=== PATIENT | male | born 1940 | race Caucasian/White ===

== ENCOUNTER → 2018-11-10 | Outpatient (CLI) | payer MEDICARE, OTHER ==
[~2018-11-10] MED LIST: ASPI325; ASPI325 PO; ASPI81CH PO; ASPI81EC PO; ATOR40TA; BACL10 PO; CEPH500 PO; CLOP75; EZET10 PO; HYDACE5 PO; OXYACE5T PO; OXYC5 PO; VITAMIN D PO
== END ==
LOC: LAB SHORT 09:10 → LAB 09:10
DX: N20.0 Calculus of kidney (principal)
CPT/HCPCS: 81050

== ENCOUNTER 2019-01-17 10:12 | Day surgery (SDC) | payer MEDICARE, OTHER ==
[~2019-01-17] VITALS: Ht 175.3 cm; Wt 105.7 kg
--- NOTE | 2019-01-17 11:07 | NUR ---
Ambulatory in Day Surgery History, Chart, Medications and Allergies reviewed before start of procedure.Patient confirms NPO status and agrees with scheduled surgery. Patient states colon prep results clear.Lungs clear T/O to Auscultation.
[2019-01-17] MEDS ORDERED: ISOMON20 PO (11:12)
--- NOTE | 2019-01-17 11:29 | NUR ---
01/17/19 1129 Celestino Norman PATIENT DETERMINED TO BE ASA APPROPRIATE FOR PROPOFOL SEDATION PRIOR TO START OF PROCEDURE BY . 3-LEAD EKG REVIEWED WITH PHYSICIAN PRIOR TO START OF PROCEDURE.PATIENT CONFIRMS NPO STATUS AND AGREES WITH SCHEDULED PROCEDURE.History, Chart, Medications and Allergies reviewed before start of procedure.MONITOR INTACT WITH CONTINUOUS PULSE OXIMETRY AND INTERMITTENT BP.O2 VIA N/C INTACT THROUGHOUT SEDATION/PROCEDURE.HURRICAINE SPRAY TO OROPHARYX.Bite Block Placed
--- NOTE | 2019-01-17 12:51 | NUR ---
Patient up to Ambulate independently. Gait steady. Discharge instructions reviewed with patient. Patient verbalizes understanding. Copy given to patient to take home. Patient States Post-Procedure ride home has been arranged. Discharged via wheelchair to private car for ride home. RX Protonix 40mg called into [facility].
== END 2019-01-17 12:42 | disposition home or self-care (01) ==
LOC: ORSCMMR 10:12 → ORD 11:00 → ORSCMMR 11:00
PROVIDERS: Internal Medicine Gastroenterology
PROC: 0DJD8ZZ Inspection of Lower Intestinal Tract, Via Natural or Artificial Opening Endoscopic (ICD-10-PCS; principal; 2019-01-17 10:15)
PROC: 0DB68ZX Excision of Stomach, Via Natural or Artificial Opening Endoscopic, Diagnostic (ICD-10-PCS; principal; 2019-01-17 10:15)
DX: D46.4 Refractory anemia, unspecified (principal); K29.00 Acute gastritis without bleeding; K29.80 Duodenitis without bleeding; K57.30 Diverticulosis of large intestine without perforation or abscess without bleeding; R15.0 Incomplete defecation; Z86.010 Personal history of colon polyps; I25.10 Atherosclerotic heart disease of native coronary artery without angina pectoris; G47.33 Obstructive sleep apnea (adult) (pediatric); Z79.82 Long term (current) use of aspirin; Z79.899 Other long term (current) drug therapy
CPT/HCPCS: 88305; 88342; J2250; J3010; J7120

== ENCOUNTER 2019-03-18 10:22 | Day surgery (SDC) | payer MEDICARE, OTHER ==
[~2019-03-18] VITALS: Ht 175.3 cm; Wt 111.0 kg
[~2019-03-18 10:22] MED LIST changes: +ALIROCUMAB; +FURO40 PO; +ISOMON20 PO; +PANT40 PO; +POTCHL10ER PO
--- NOTE | 2019-03-18 10:42 | NUR ---
Ambulatory in Day Surgery History, Chart, Medications and Allergies reviewed before start of procedure.Lungs clear T/O to Auscultation. Patient confirms NPO status and agrees with scheduled surgery. Pre-Op teaching done. Pt verbalizes understanding. Patient States Post-Procedure ride home has been arranged.
--- NOTE | 2019-03-18 10:59 | NUR ---
WILL BE BROUGHT BACK TO BEDSIDE. PT READY TO BE TAKEN TO ENDO ROOM.
--- NOTE | 2019-03-18 11:16 | NUR ---
03/18/19 1116 Olga Pratt History, Chart, Medications and Allergies reviewed before start of procedure. MODERATE SEDATION DUE TO HX CARLOS ALBERTO.MONITOR INTACT WITH CONTINUOUS PULSE OXIMETRY AND INTERMITTENT BP.3-LEAD EKG REVIEWED WITH PHYSICIAN PRIOR TO START OF PROCEDURE. POM MASK USED FOR PROCEDURE.
--- NOTE | 2019-03-18 12:38 | NUR ---
Patient up to Ambulate independently. Gait steady. Patient States Post-Procedure ride home has been arranged. Discharged via wheelchair to private car for ride home. Discharge instructions reviewed with patient. Patient verbalizes understanding. Copy given to patient to take home. HAD TO REDRAW PT LABS FOR THE SECOND TIME. BLOOD SENT CLOTTED. PT TOLERATED SEVERAL ATTEMPTS FOR IV ACCESS AND BLOOD DRAWS. ALL BELONINGS SENT HOME WITH PT.
[2019-03-18 12:41] LABS: BASOPHILS ABSOLUTE AUTO 0.04 K/mm3 (0.00-0.23); BASOPHILS PERCENT AUTO 1 % (0-2); EOSINOPHILS ABSOLUTE AUTO 0.22 K/mm3 (0.00-0.68); EOSINOPHILS PERCENT AUTO 4 % (0-6); Hematocrit 38.7 % (37.0-53.0); Hemoglobin 12.2 g/dL (13.5-17.5); IMMATURE GRAN ABSOLUTE AUTO 0.03 K/mm3 (0.00-0.10); IMMATURE GRAN PERCENT AUTO 1 % (0-1); LYMPHOCYTES ABSOLUTE AUTO 2.02 K/mm3 (0.84-5.20); LYMPHOCYTES PERCENT AUTO 37 % (21-46); MONOCYTES ABSOLUTE AUTO 0.71 K/mm3 (0.16-1.47); MONOCYTES PERCENT AUTO 13 % (4-13); Mean Corpuscular HGB 28.8 pg (26.0-34.0); Mean Corpuscular HGB Conc 31.5 g/dL (31.5-36.5); Mean Corpuscular Volume 92 fL (80-100); NEUTROPHILS ABSOLUTE AUTO 2.47 K/mm3 (1.96-9.15); NEUTROPHILS PERCENT AUTO 45 % (41-73); Platelet Count 194 K/mm3 (150-400); RDW Coefficient Variation 15.3 % (11.7-14.2); RDW Standard Deviation 50.8 fL (35.1-46.3); Red Blood Cell Count 4.23 M/mm3 (4.30-5.90); White Blood Cell Count 5.49 K/mm3 (4.00-11.30)
== END 2019-03-18 22:59 | disposition home or self-care (01) ==
LOC: ORSCMMR 10:22 → ORD 11:30 → ORSCMMR 22:59
PROVIDERS: Internal Medicine Gastroenterology
PROC: 0DB68ZX Excision of Stomach, Via Natural or Artificial Opening Endoscopic, Diagnostic (ICD-10-PCS; principal; 2019-03-18 11:30)
DX: Z87.11 Personal history of peptic ulcer disease (principal); K29.70 Gastritis, unspecified, without bleeding; G47.30 Sleep apnea, unspecified; I25.10 Atherosclerotic heart disease of native coronary artery without angina pectoris; Z79.82 Long term (current) use of aspirin; Z79.899 Other long term (current) drug therapy
CPT/HCPCS: 82728; 83540; 83550; 85025; 88305; 88342; J2250; J3010; J7120

== ENCOUNTER → 2019-07-03 | Outpatient (CLI) | payer MEDICARE, OTHER | END | disposition home or self-care (01) | LOC: PLD 12:06 → LAB SHORT 12:06 | DX: C44.219 Basal cell carcinoma of skin of left ear and external auricular canal (principal); C44.222 Squamous cell carcinoma of skin of right ear and external auricular canal | CPT/HCPCS: 88305 ==

== ENCOUNTER → 2019-07-25 | Outpatient (CLI) | payer MEDICARE, OTHER | END | disposition home or self-care (01) | LOC: LAB SHORT 14:07 → PLD 14:07 | DX: C44.219 Basal cell carcinoma of skin of left ear and external auricular canal (principal) | CPT/HCPCS: 88305 ==

== ENCOUNTER → 2021-02-15 | Outpatient (CLI) | payer MEDICARE | END | disposition home or self-care (01) | LOC: LAB SHORT 08:40 → LAB 08:40 | DX: L57.0 Actinic keratosis (principal) | CPT/HCPCS: 88305 ==

== ENCOUNTER → 2023-06-28 | Outpatient (CLI) | payer MEDICARE | END | disposition home or self-care (01) | LOC: LAB SHORT 10:01 → LAB 10:01 | DX: C44.222 Squamous cell carcinoma of skin of right ear and external auricular canal (principal) | CPT/HCPCS: 88305 ==

== ENCOUNTER 2024-06-25 08:45 | Day surgery (SDC) | payer MEDICARE ==
[~2024-06-25] VITALS: Ht 169 cm; Wt 107.0 kg
[~2024-06-25 08:45] MED LIST changes: +B12-FOLIC ACID1 EACH PO; +NS 500 ML IV SCH; +RANEXA1000 M4 PO; +REPATHA SU140 MG/1 M SC
[2024-06-25] MEDS ORDERED: NS 500 ML IV SCH (09:00)
[2024-06-25 11:23] VITALS: BP 163/74
--- NOTE | 2024-06-25 11:41 | NUR ---
History, Chart, Medications and Allergies reviewed before start of procedure. Patient up to Ambulate independently. Gait steady. Pre-Op teaching done. Pt verbalizes understanding. Patient confirms NPO status and agrees with scheduled surgery. Patient states colon prep results clear. Patient States Post-Procedure ride home has been arranged. Patient has requested no anesthesia for procedure. MD aware, anesthesia to consult as needed.
[2024-06-25] MEDS ORDERED: propofoL 0 ML IV ONE (11:53)
--- NOTE | 2024-06-25 11:55 | NUR ---
06/25/24 1155 Simone Wilhelm History, Chart, Medications and Allergies reviewed before start of procedure.MONITOR INTACT WITH CONTINUOUS PULSE OXIMETRY, CONTINUOUS END TITAL CO2, AND INTERMITTENT BLOOD PRESSURE.3-LEAD EKG REVIEWED WITH PHYSICIAN PRIOR TO START OF PROCEDURE.O2 VIA POM INTACT THROUGHOUT SEDATION/PROCEDURE.PER PATIENT REQUEST, NO SEDATION.ANESTHESIA ON STANDBY IF NEEDED.
[2024-06-25 12:26] VITALS: BP 151/74
--- NOTE | 2024-06-25 12:28 | NUR ---
DR COATS AT BEDSIDE REVIEWING RESULTS AND FOLLOW-UP INSTUCTIONS WITH PATIENT. DR COATS ALSO INSTRUCTED PATIENT ON DAILY METAMUCIL DOSING.
== END 2024-06-25 12:45 | disposition home or self-care (01) ==
LOC: ORSCMMR 08:45 → ORD 10:45 → ORSCMMR 12:45
PROVIDERS: Internal Medicine Gastroenterology
PROC: 0DBK8ZX Excision of Ascending Colon, Via Natural or Artificial Opening Endoscopic, Diagnostic (ICD-10-PCS; principal; 2024-06-25 10:45)
DX: R19.4 Change in bowel habit (principal); K62.5 Hemorrhage of anus and rectum; Z86.0101 Personal history of adenomatous and serrated colon polyps; K57.30 Diverticulosis of large intestine without perforation or abscess without bleeding; M62.89 Other specified disorders of muscle; I25.10 Atherosclerotic heart disease of native coronary artery without angina pectoris; G47.30 Sleep apnea, unspecified; Z87.19 Personal history of other diseases of the digestive system; Z79.82 Long term (current) use of aspirin; Z79.899 Other long term (current) drug therapy
CPT/HCPCS: 88305; J2704; J7040